=== PATIENT | male | born 1940 | race Caucasian/White ===

== ENCOUNTER 2018-01-19 01:39 | Emergency (ER) | payer OTHER ==
[~2018-01-19] VITALS: Ht 175.3 cm; Wt 80.0 kg
[~2018-01-19 01:39] MED LIST: ASPI81TA82 PO; CHOL50006 PO; LIPI80TA16 PO; LISI-360 PO; LUTE20CA PO; METO50TA PO; TAB-TAB PO
[2018-01-19 01:45] VITALS: BP 152/76; PULSE 110; RESP 18; TEMP 97.8; O2SAT 98
[2018-01-19] MEDS ORDERED: METO25TA3 PO (01:56)
[2018-01-19] MEDS ORDERED: ASPI-516 CHEW (01:56)
[2018-01-19] MEDS ORDERED: ATOR80TA45 PO (01:56)
[2018-01-19] MEDS ORDERED: VITA200013 (01:56)
[2018-01-19] MEDS ORDERED: LISI-515 PO (01:56)
[2018-01-19] MEDS ORDERED: CENTCHW4 CHEW (01:56)
[2018-01-19] MEDS ORDERED: SODIUM CHLORIDE 0.9% FLUSH 10 ML FLUSH IVF PRN (02:00)
[2018-01-19 02:20] LABS: AUTOMATED NEUTROPHIL # 4.9 TH/MM3 (1.8-7.7); BASOPHIL % 0.2 % (0.0-2.0); EOSINOPHIL # 0.3 TH/MM3 (0-0.4); EOSINOPHIL % 3.8 % (0.0-4.0); HEMATOCRIT 43.6 % (39.0-51.0); HEMOGLOBIN 14.6 GM/DL (13.0-17.0); LYMPH % 33.2 % (9.0-44.0); MEAN CELL VOLUME 90.6 FL (80.0-100.0); MEAN CORPUSCULAR HEMOGLOBIN 30.4 PG (27.0-34.0); MEAN CORPUSCULAR HGB CONC 33.5 % (32.0-36.0); MEAN PLATELET VOLUME 8.2 FL (7.0-11.0); MONOCYTE # 0.8 TH/MM3 (0-0.9); NEUT % 53.8 % (16.0-70.0); PLATELET COUNT 181 TH/MM3 (150-450); RED BLOOD COUNT 4.81 MIL/MM3 (4.50-5.90); RED CELL DISTRIBUTION WIDTH 14.4 % (11.6-17.2); WHITE BLOOD COUNT 9.1 TH/MM3 (4.0-11.0)
[2018-01-19 02:27] LABS: INTERNATIONAL NORMALIZED RATIO 1.1 RATIO; PROTHROMBIN TIME - PATIENT 11.3 SEC (9.8-11.6)
--- NOTE | 2018-01-19 02:33 | PD ---
HPI . Palpitations Chief Complaint: Cardiac Complaint Time Seen by Provider: 02:00 Travel History International Travel<30 days: No Contact w/Intl Traveler<30days: No Traveled to known affect area: No History of Present Illness HPI This patient presents with the acute onset of palpitations. It started at 11 PM. He states that it was a hard, pounding sensation in his chest. He denied any associated symptoms. Symptoms were completely relieved by cortisone which was given by EMS. Symptoms lasted approximately 2 hours. This patient does have a strong history of cardiovascular disease. He has a history of previous OH and previous atrial fibrillation. He believes that he is normally in a sinus rhythm. He is not on an anticoagulant which would lead me to believe that his underlying rhythm is sinus. PFSH Past Medical History Arthritis: Yes (generalized ) Asthma: No Autoimmune Disease: No Heart Rhythm Problems: No Cancer: No Cardiac Catheterization: No Cardiovascular Problems: Yes High Cholesterol: Yes Chemotherapy: No Chest Pain: Yes Congestive Heart Failure: No COPD: No Cerebrovascular Accident: No Diabetes: No Diminished Hearing: No Endocrine: No Gastrointestinal Disorders: Yes (GALLBLADDER STONES) GERD: Yes Genitourinary: No Hepatitis: No Hiatal Hernia: No Hypertension: Yes Immune Disorder: No Kidney Stones: No Musculoskeletal: Yes (ARTHRITIS) Neurologic: Yes (NUMBNESS UPPER THIGHS (LATERAL)) Psychiatric: No Reproductive: No Respiratory: No Immunizations Current: No Migraines: No Radiation Therapy: No Renal Failure: No Seizures: No Sickle Cell Disease: No Sleep Apnea: No Thyroid Disease: No Ulcer: No Past Surgical History Abdominal Surgery: No AICD: No Arteriovenous Shunt: No Cardiac Surgery: Yes (11/04/13 TRIPLE BYPASS) Coronary Artery Bypass Graft: Yes (10/2013) Ear Surgery: No Endocrine Surgery: No Eye Surgery: No Genitourinary Surgery: No Insulin Pump: No Joint Replacement: No Oral Surgery: No Pacemaker: No Thoracic Surgery: No Tonsillectomy: Yes Other Surgery: Yes (lt shoulder rotator cuff 8-9 years ago) Family History Family Myocardial Infarction: Yes Social History Alcohol Use: Yes (OCCASSIONAL) Tobacco Use: No Substance Use: No Allergies-Medications (Allergen,Severity, Reaction): Coded Allergies: No Known Allergies (Verified Adverse Reaction, Unknown, 01/19/18) Reported Meds & Prescriptions Reported Meds & Active Scripts Active Reported Vitamin D (Cholecalciferol) 2,000 Unit Cap 2,500 DAILY Centrum (Multiple Vitamins W/ Minerals) 1 Chew 1 Tab CHEW DAILY Metoprolol Tartrate 25 Mg Tab 25 Mg PO BID Aspirin 81 Mg Chew 81 Mg CHEW DAILY Lisinopril 20 Mg Tab 20 Mg PO DAILY Atorvastatin (Atorvastatin Calcium) 80 Mg Tab 80 Mg PO HS Review of Systems Except as stated in HPI: all other systems reviewed are Neg Physical Exam Narrative GENERAL: Pleasant, elderly man who is in no acute distress. SKIN: warm/dry. Normal color and turgor. HEAD: Normocephalic. Atraumatic. EYES: Pupils equal and round. No scleral icterus. No injection or drainage. ENT: No nasal bleeding or discharge. Mucous membranes pink and moist. NECK: Trachea midline. Full range of motion without pain.. CARDIOVASCULAR: Irregular rhythm with a controlled rate. RESPIRATORY: No accessory muscle use. Clear to auscultation. Breath sounds equal bilaterally. MUSCULOSKELETAL: No obvious deformities. NEUROLOGICAL: Awake and alert. No obvious cranial nerve deficits. Motor grossly within normal limits. Normal speech. PSYCHIATRIC: Appropriate mood and affect; insight and judgment normal. Data Data Last Documented VS Vital Signs Date Time Temp Pulse Resp B/P (MAP) Pulse Ox O2 Delivery O2 Flow Rate FiO2 01/19/18 02:49 105 16 142/67 (92) 98 Room Air 01/19/18 01:45 97.8 Orders Orders Basic Metabolic Panel (Bmp) (01/19/18 02:00) Complete Blood Count With Diff (01/19/18 02:00) Magnesium (Mg) (01/19/18 02:00) Prothrombin Time / Inr (Pt) (01/19/18 02:00) Troponin I (01/19/18 02:00) Ecg Monitoring (01/19/18 02:00) Iv Access Insert/Monitor (01/19/18 02:00) Oximetry (01/19/18 02:00) Sodium Chloride 0.9% Flush (Ns Flush) (01/19/18 02:00) Chest, Pa & Lat (01/19/18 02:00) Labs Laboratory Tests Test 01/19/18 02:10 White Blood Count 9.1 TH/MM3 Red Blood Count 4.81 MIL/MM3 Hemoglobin 14.6 GM/DL Hematocrit 43.6 % Mean Corpuscular Volume 90.6 FL Mean Corpuscular Hemoglobin 30.4 PG Mean Corpuscular Hemoglobin Concent 33.5 % Red Cell Distribution Width 14.4 % Platelet Count 181 TH/MM3 Mean Platelet Volume 8.2 FL Neutrophils (%) (Auto) 53.8 % Lymphocytes (%) (Auto) 33.2 % Monocytes (%) (Auto) 9.0 % Eosinophils (%) (Auto) 3.8 % Basophils (%) (Auto) 0.2 % Neutrophils # (Auto) 4.9 TH/MM3 Lymphocytes # (Auto) 3.0 TH/MM3 Monocytes # (Auto) 0.8 TH/MM3 Eosinophils # (Auto) 0.3 TH/MM3 Basophils # (Auto) 0.0 TH/MM3 CBC Comment DIFF FINAL Differential Comment Prothrombin Time 11.3 SEC Prothromb Time International Ratio 1.1 RATIO Blood Urea Nitrogen 14 MG/DL Creatinine 1.18 MG/DL Random Glucose 119 MG/DL Calcium Level 9.4 MG/DL Magnesium Level 2.0 MG/DL Sodium Level 141 MEQ/L Potassium Level 4.1 MEQ/L Chloride Level 107 MEQ/L Carbon Dioxide Level 26.7 MEQ/L Anion Gap 7 MEQ/L Estimat Glomerular Filtration Rate 60 ML/MIN Troponin I LESS THAN 0.02 NG/ML MDM Medical Decision Making Medical Screen Exam Complete: Yes Emergency Medical Condition: Yes Medical Record Reviewed: Yes (Medical history of hypertension, hyperlipidemia, coronary artery disease status post previous OH, atrial fibrillation) Interpretation(s) EKG shows atrial fibrillation with a controlled rate and no acute ischemic changes. Differential Diagnosis Differential diagnosis of palpitations includes but is not limited to anxiety, SVT, aVF with RVR, VT, sinus tachycardia, PVCs Narrative Course This patient presents for the evaluation of palpitations. The palpitations have been successfully treated by EMS with Cardizem. He is in atrial fibrillation. His heart rate has remained stable in the emergency department. CBC & BMP Diagram 01/19/18 02:10 Calcium Level 9.4, Magnesium Level 2.0 Coags are normal. Troponin < 0.02 The patient reports that he feels well and would like to go home. He gives me no contraindications to anticoagulation. I will give him a prescription for Xarelto and Cardizem and have him follow-up with Dr. Alarcon. Diagnosis Primary Impression: Atrial fibrillation with rapid ventricular response Patient Instructions: A-fib (Atrial Fibrillation) (DC), General Instructions Med/Other Pt SpecificInfo: Prescription(s) given Scripts Diltiazem CD 24 HR (Cardizem CD 24 HR) 180 Mg Caper 180 MG PO DAILY, #30 CAP 0 Refills Prov: Dai Sarah MD 01/19/18 Rivaroxaban (Xarelto) 20 Mg Tab 20 MG PO DAILY for Blood Clot Prevention for 30 Days, #30 TAB 0 Refills Prov: Dai Sarah MD 01/19/18 Disposition: 01 DISCHARGE HOME Condition: Stable Dai Sarah MD Jan 19, 2018 02:33
--- NOTE | 2018-01-19 02:45 | RADRPT ---
EXAM DATE/TIME: 01/19/2018 02:28 [facility] COMPARISON: CHEST SINGLE AP, September 19, 2015, 0:16. INDICATIONS : Short of breath. MEDICAL HISTORY : None. SURGICAL HISTORY : Pacemaker. CABG. ENCOUNTER: Initial ACUITY: 1 day PAIN SCORE: 0/10 LOCATION: Bilateral chest FINDINGS: PA and lateral views of the chest demonstrate the lungs to be symmetrically aerated without evidence of mass, infiltrate or effusion. The cardiomediastinal contours are unremarkable. Osseous structure s are intact. Median sternotomy changes are again noted. CONCLUSION: No evidence of acute cardiopulmonary disease. Jd Thompson MD on January 19, 2018 at 2:43 Board Certified Radiologist. This report was verified electronically.
[2018-01-19 02:47] LABS: TROPONIN I LESS THAN 0.02 NG/ML (0.02-0.05)
[2018-01-19 02:49] VITALS: BP 142/67; PULSE 105; RESP 16; O2SAT 98
[2018-01-19 02:49] LABS: BICARBONATE 26.7 MEQ/L (21.0-32.0); BLOOD UREA NITROGEN 14 MG/DL (7-18); CALCIUM 9.4 MG/DL (8.5-10.1); CHLORIDE 107 MEQ/L (98-107); CREATININE 1.18 MG/DL (0.60-1.30); GLOMERULAR FILTRATION RATE 60 ML/MIN (>89); GLUCOSE,RANDOM 119 MG/DL (74-106); SODIUM (NA) 141 MEQ/L (136-145)
[2018-01-19] MEDS ORDERED: XARE20TA PO (03:46)
[2018-01-19] MEDS ORDERED: CARD180C5 PO (03:46)
[2018-01-19] MEDS ORDERED: RIVAROXABAN 20 MG TAB PO ONE (04:00)
[2018-01-19] MEDS ORDERED: DILTIAZEM-CD 180 MG CAP ER PO ONE (04:00)
[2018-01-19 07:00] VITALS: PULSE 135
[2018-01-19] MEDS ORDERED: METOPROLOL TARTRATE 5 MG/5 ML VIAL IV PUSH PRN (07:15)
[2018-01-19 07:18] VITALS: BP 136/72; PULSE 120; RESP 19; O2SAT 98
[2018-01-19 07:52] VITALS: PULSE 92
--- NOTE | 2018-01-19 15:21 | EKG ---
Date Performed: 01/19/2018 Time Performed: 01:47:17 PTAGE: 77 years EKG: ATRIAL FIBRILLATION WITH RAPID VENTRICULAR RESPONSE INCOMPLETE RIGHT BUNDLE BRANCH BLOCK MO DERATE ST DEPRESSION ABNORMAL ECG Since the PREVIOUS TRACING , no significant change noted PREVIOUS TRACIN09/19/2015 06.01 DOCTOR: Mo Burt Interpretating Date/Time 01/19/2018 15:16:58
== END 2018-01-19 08:27 | disposition home or self-care (01) ==
LOC: NEPE 01:39
DX: I48.91 Unspecified atrial fibrillation (principal); E78.00 Pure hypercholesterolemia, unspecified; I10 Essential (primary) hypertension
CPT/HCPCS: 71046; 80048; 83735; 84484; 85025; 85610; 93005; 96374

== ENCOUNTER 2018-02-27 08:43 | Inpatient (IN) | payer OTHER, MEDICARE ==
[2018-02-27] VITALS (12 sets, daily range): BP systolic 112–150; BP diastolic 61–84; PULSE 87–119; RESP 15–24; TEMP 97.7–98.6; O2SAT 98–99
[~2018-02-27] VITALS: Ht 175.3 cm; Wt 76.0 kg
[~2018-02-27 08:43] MED LIST changes: +ASPI-516 CHEW; -ASPI81TA82 PO; +ATOR80TA45 PO; +CARD180C5 PO; +CENTCHW4 CHEW; -CHOL50006 PO; -LIPI80TA16 PO; -LISI-360 PO; +LISI-515 PO; -LUTE20CA PO; +METO25TA3 PO; -METO50TA PO; -TAB-TAB PO; +VITA200013; +XARE20TA PO
[2018-02-27] MEDS ORDERED: PANTOPRAZOLE INJ 80 MG in SODIUM CHLORIDE 0.9% INJ 35 ML IV ONE (09:03)
--- NOTE | 2018-02-27 09:09 | PD ---
HPI Chief Complaint: GI Complaint Time Seen by Provider: 08:56 Travel History International Travel<30 days: No Contact w/Intl Traveler<30days: No Traveled to known affect area: No History of Present Illness HPI 77yo M with PMH of afib on xarelto and diltiazem, CAD s/p CABG, HLD presents to the ED with c/o blood in stool since yesterday. Said he only took half his xarelto yesterday because he thinks that is what is causing the bleeding. Pt has also been feeling sob with just a few steps of walking for 2 days. Denies any fever, chest pain, n/v, abdominal pain, focal weakness or numbness. Pt had colonoscopy in 2014 and it was normal. PFSH Past Medical History Hx Anticoagulant Therapy: Yes Arthritis: Yes (generalized ) Asthma: No Autoimmune Disease: No Heart Rhythm Problems: No Cancer: No Cardiac Catheterization: Yes Cardiovascular Problems: Yes High Cholesterol: Yes Chemotherapy: No Chest Pain: Yes Congestive Heart Failure: No COPD: No Cerebrovascular Accident: No Diabetes: No Diminished Hearing: No Endocrine: No Gastrointestinal Disorders: Yes (GALLBLADDER STONES) GERD: Yes Genitourinary: No Hepatitis: No Hiatal Hernia: No Hypertension: Yes Immune Disorder: No Kidney Stones: No Musculoskeletal: Yes Neurologic: Yes (NUMBNESS UPPER THIGHS (LATERAL)) Psychiatric: No Reproductive: No Respiratory: No Immunizations Current: No Migraines: No Radiation Therapy: No Renal Failure: No Seizures: No Sickle Cell Disease: No Sleep Apnea: No Thyroid Disease: No Ulcer: No Past Surgical History Abdominal Surgery: No AICD: No Arteriovenous Shunt: No Cardiac Surgery: Yes (11/04/13 TRIPLE BYPASS) Coronary Artery Bypass Graft: Yes (11/04/2013 TRIPPLE BYPASS ) Ear Surgery: No Endocrine Surgery: No Eye Surgery: No Genitourinary Surgery: No Insulin Pump: No Joint Replacement: No Oral Surgery: No Pacemaker: No Thoracic Surgery: No Tonsillectomy: Yes Other Surgery: Yes (lt shoulder rotator cuff 8-9 years ago) Family History Family Myocardial Infarction: Yes Social History Alcohol Use: Yes (OCCASSIONAL) Tobacco Use: No Substance Use: No Allergies-Medications (Allergen,Severity, Reaction): Coded Allergies: No Known Allergies (Verified Adverse Reaction, Unknown, 02/27/18) Reported Meds & Prescriptions Reported Meds & Active Scripts Active Cardizem CD 24 HR (Diltiazem CD 24 HR) 180 Mg Caper 180 Mg PO DAILY Xarelto (Rivaroxaban) 20 Mg Tab 20 Mg PO DAILY 30 Days Reported Vitamin D (Cholecalciferol) 2,000 Unit Cap 2,500 DAILY Centrum (Multiple Vitamins W/ Minerals) 1 Chew 1 Tab CHEW DAILY Atorvastatin (Atorvastatin Calcium) 80 Mg Tab 80 Mg PO HS Review of Systems Except as stated in HPI: all other systems reviewed are Neg Physical Exam Narrative GENERAL: 77yo M in mild distress. SKIN: Focused skin assessment warm/dry. HEAD: Atraumatic. Normocephalic. EYES: Pupils equal and round. No scleral icterus. No injection or drainage. ENT: No nasal bleeding or discharge. Mucous membranes pink and moist. NECK: Trachea midline. No JVD. CARDIOVASCULAR: Irregular rate and rhythm. No murmur appreciated. RESPIRATORY: No accessory muscle use. Clear to auscultation. Breath sounds equal bilaterally. GASTROINTESTINAL: Abdomen soft, non-tender, nondistended. No rebound tenderness or guarding. RECTAL: +Maroon color on rectal exam. +Hemaprompt. MUSCULOSKELETAL: No obvious deformities. No clubbing. No cyanosis. +Bilateral lower extremity edema. NEUROLOGICAL: Awake and alert. No obvious cranial nerve deficits. Motor grossly within normal limits. Normal speech. PSYCHIATRIC: Appropriate mood and affect; insight and judgment normal. Data Data Last Documented VS Vital Signs Date Time Temp Pulse Resp B/P (MAP) Pulse Ox O2 Delivery O2 Flow Rate FiO2 02/27/18 09:39 89 19 118/61 (80) 98 Room Air 02/27/18 08:45 98.4 Orders Orders Basic Metabolic Panel (Bmp) (02/27/18 09:03) Complete Blood Count With Diff (02/27/18 09:03) Prothrombin Time / Inr (Pt) (02/27/18 09:03) Act Partial Throm Time (Ptt) (02/27/18 09:03) Type And Screen (02/27/18 09:03) Sodium Chloride 0.9... W/Pantoprazole In (02/27/18 09:03) Sodium Chloride 0.9... W/Pantoprazole In (02/27/18 09:03) Troponin I (02/27/18 09:03) Electrocardiogram (02/27/18 ) Chest, Single Ap (02/27/18 ) B-Type Natriuretic Peptide (02/27/18 09:03) ^ Lab Follow Up (02/27/18 09:19) Prothrombin Complex Conc Inj (Kcentra In (02/27/18 09:30) Red Blood Cells (Rbc) (02/27/18 10:18) Blood Product Administration (02/27/18 10:18) Sodium Chlor 0.9% 250 Ml Inj (Ns 250 Ml (02/27/18 10:30) Consult Gastroenterology (02/27/18 ) Labs Laboratory Tests Test 02/27/18 09:10 White Blood Count 6.7 TH/MM3 Red Blood Count 2.92 MIL/MM3 Hemoglobin 8.6 GM/DL Hematocrit 26.5 % Mean Corpuscular Volume 90.5 FL Mean Corpuscular Hemoglobin 29.4 PG Mean Corpuscular Hemoglobin Concent 32.4 % Red Cell Distribution Width 14.0 % Platelet Count 266 TH/MM3 Mean Platelet Volume 7.8 FL Neutrophils (%) (Auto) 71.2 % Lymphocytes (%) (Auto) 18.4 % Monocytes (%) (Auto) 9.4 % Eosinophils (%) (Auto) 0.6 % Basophils (%) (Auto) 0.4 % Neutrophils # (Auto) 4.8 TH/MM3 Lymphocytes # (Auto) 1.2 TH/MM3 Monocytes # (Auto) 0.6 TH/MM3 Eosinophils # (Auto) 0.0 TH/MM3 Basophils # (Auto) 0.0 TH/MM3 CBC Comment DIFF FINAL Differential Comment Prothrombin Time 13.5 SEC Prothromb Time International Ratio 1.3 RATIO Activated Partial Thromboplast Time 27.1 SEC Blood Urea Nitrogen 13 MG/DL Creatinine 1.21 MG/DL Random Glucose 146 MG/DL Calcium Level 8.6 MG/DL Sodium Level 141 MEQ/L Potassium Level 3.6 MEQ/L Chloride Level 108 MEQ/L Carbon Dioxide Level 23.6 MEQ/L Anion Gap 9 MEQ/L Estimat Glomerular Filtration Rate 58 ML/MIN Troponin I LESS THAN 0.02 NG/ML B-Type Natriuretic Peptide 228 PG/ML MDM Medical Decision Making Medical Screen Exam Complete: Yes Emergency Medical Condition: Yes Interpretation(s) EKG: Afib at 114bpm. LAD. Mild ST depression I, aVL, V4-V6. ST depressions similar to EKG from 01/2018. Differential Diagnosis Lower GI bleed vs. symptomatic anemia vs. Afib RVR Narrative Course 77yo M with blood in stool and exertional sob for 2 days. He is on xarelto for afib and is having active GI bleed so will give K centra to reverse anticoagulation. Pt also given protonix for GI bleed. Pt's motel front desk clerk is Dr. Alves. He took his diltiazem this morning, HR is fluctuating between 100s to low 110s. Labs reviewed, no leukocytosis. H/H low at 8.6/26.5 which is decreased from 14.6/43.6 on 01/19/18. BMP unremarkable. Troponin negative. Pt reevaluated at bedside. Vital signs are stable with BP at 112/67 and HR in the 90s. CXR negative. Pt has symptomatic anemia secondary to GI bleed and has CAD so will transfuse 1 unit of PRBC. Discussed with Dr. Chavira and accepted to his service. Critical Care Narrative Aggregate critical care time was 40 minutes. Time to perform other separately billable procedures was not included in the critical care time. My time did not include minutes spent treating any other patients simultaneously or on activities that did not directly contribute to the patient's treatment. The services I provided to this patient were to treat and/or prevent clinically significant deterioration that could result in: cardiovascular collapse or . I provided critical care services requiring my management, as noted below: Chart data review, documentation time, medication orders and management, vital sign assessments/reviewing monitor data, ordering and reviewing lab tests, ordering and interpreting/reviewing x-rays and diagnostic studies, care of the patient and discussion of the patient with the admitting physicians. Diagnosis Primary Impression: GI bleed Qualified Codes: K92.2 - Gastrointestinal hemorrhage, unspecified Additional Impression: Symptomatic anemia Admitting Information Admitting Physician Requests: Kaylen Crain DO February 27, 2018 09:09
--- NOTE | 2018-02-27 09:27 | RADRPT ---
EXAM DATE: 02/27/2018 9:23 AM EDT AGE/SEX: 77 years / Male INDICATIONS: Shortness of breath for two days. CLINICAL DATA: This is the patient's initial encounter. Patient reports that signs and symptoms have been present for 2 days and indicates a pain score of 0/10. MEDICAL/SURGICAL HISTORY: None. CABG. COMPARISON: [facility] [place], CHEST SINGLE AP, 09/19/2015. . FINDINGS: A single AP view of the chest demonstrates the lungs to be symmetrically aerated without evidence of mass, infiltrate or effusion. The cardiomediastinal contours are unremarkable and stable. There is e vidence of previous cardiothoracic surgery.. Osseous structures are intact. CONCLUSION: No acute intrathoracic disease. Stable examination. Electronically signed by: Kali Delgado MD 02/27/2018 9:26 AM EDT
[2018-02-27] MEDS ORDERED: PROTHROMBIN COMPLEX CONC INJ 4,000 UNITS in SYRINGE/BAG 1 EA IV ONE (09:30)
[2018-02-27 09:38] LABS: AUTOMATED NEUTROPHIL # 4.8 TH/MM3 (1.8-7.7); BASOPHIL % 0.4 % (0.0-2.0); EOSINOPHIL % 0.6 % (0.0-4.0); HEMATOCRIT 26.5 % (39.0-51.0); HEMOGLOBIN 8.6 GM/DL (13.0-17.0); LYMPH % 18.4 % (9.0-44.0); LYMPHOCYTE # 1.2 TH/MM3 (1.0-4.8); MEAN CELL VOLUME 90.5 FL (80.0-100.0); MEAN CORPUSCULAR HEMOGLOBIN 29.4 PG (27.0-34.0); MEAN CORPUSCULAR HGB CONC 32.4 % (32.0-36.0); MEAN PLATELET VOLUME 7.8 FL (7.0-11.0); MONO % 9.4 % (0.0-8.0); MONOCYTE # 0.6 TH/MM3 (0-0.9); NEUT % 71.2 % (16.0-70.0); PLATELET COUNT 266 TH/MM3 (150-450); RED BLOOD COUNT 2.92 MIL/MM3 (4.50-5.90); WHITE BLOOD COUNT 6.7 TH/MM3 (4.0-11.0)
[2018-02-27] MEDS: PANTOPRAZOLE INJ 80 MG in SODIUM CHLORIDE 0.9% INJ 100 ML IV SCH ×2 (09:46→17:50)
[2018-02-27 09:56] LABS: INTERNATIONAL NORMALIZED RATIO 1.3 RATIO; PROTHROMBIN TIME - PATIENT 13.5 SEC (9.8-11.6)
[2018-02-27 10:09] LABS: BICARBONATE 23.6 MEQ/L (21.0-32.0); BLOOD UREA NITROGEN 13 MG/DL (7-18); CALCIUM 8.6 MG/DL (8.5-10.1); CHLORIDE 108 MEQ/L (98-107); CREATININE 1.21 MG/DL (0.60-1.30); GLOMERULAR FILTRATION RATE 58 ML/MIN (>89); GLUCOSE,RANDOM 146 MG/DL (74-106); SODIUM (NA) 141 MEQ/L (136-145)
[2018-02-27 10:14] LABS: TROPONIN I LESS THAN 0.02 NG/ML (0.02-0.05)
[2018-02-27] MEDS ORDERED: SODIUM CHLOR 0.9% 250 ML INJ 250 ML IV ONE (10:30)
[2018-02-27] MEDS ORDERED: ONDANSETRON ODT 4 MG TAB PO PRN (11:15)
--- NOTE | 2018-02-27 11:20 | HHI.HP ---
[facility] Primary [facility] Physician Unknown Admission Diagnosis GI bleed on xarelto Diagnoses: (1) Acute blood loss anemia Diagnosis: Principal (2) GI bleed Diagnosis: Principal Chief Complaint: rectal bleed Travel History International Travel<30 Days: No Contact w/Intl Traveler <30 Da: No Traveled to Known Affected Are: No History of Present Illness patient is a 77 y/o male with history of CAD, hypertension, recently diagnosed with a-fib, on Xarelto presented to ER with rectal bleed. he was seen in ER and was diagnosed with a-fib about a month ago and was placed on cardizem and xarelto. he says that since then he's been having fatigue with some exertional dyspnea. he says that initially he thought it was because of the new medications that he was started on. he says that he had a large BM yesterday , most of which was blood. again he had another BM this morning and he noticed some blood when he wiped himself. then he decided to come to ER. he denies any abdominal pain, nausea, vomiting, chest pain or dizziness. he had his last colonoscopy in 2014 which was reportedly negative. Review of Systems Constitutional: COMPLAINS OF: Fatigue, DENIES: Fever, Weight loss, Chills, Night Sweats Eyes: DENIES: Blurred vision, Diplopia, Vision loss, Double Vision Ears, nose, mouth, throat: DENIES: Tinnitus, Vertigo, Throat pain, Epistaxis Respiratory: DENIES: Apneas, Cough, Snoring, Wheezing, Hemoptysis, Sputum production, Shortness of breath Cardiovascular: COMPLAINS OF: Dyspnea on Exertion, DENIES: Chest pain, Palpitations, Syncope, PND, Lower Extremity Edema, Orthopnea, Claudication Gastrointestinal: COMPLAINS OF: Bloody stools, DENIES: Abdominal pain, Black stools, Constipation, Diarrhea, Nausea, Vomiting, Difficulty Swallowing, Anorexia Genitourinary: DENIES: Urinary frequency, Urgency, Hematuria, Dysuria Musculoskeletal: DENIES: Joint pain, Muscle aches, Stiffness, Joint Swelling Integumentary: DENIES: Rash Neurologic: DENIES: Abnormal gait, Headache, Localized weakness, Paresthesias, Seizures, Speech Problems, Tremor, Poor Balance Psychiatric: DENIES: Anxiety, Confusion, Mood changes, Depression, Hallucinations, Agitation, Suicidal Ideation, Homicidal Ideation, Delusions Past Family Social History Past Medical History CAD/ hypertension/ a-fib. Past Surgical History CABG/ cholecystectomy. Reported Medications Cardizem CD 24 HR (Diltiazem CD 24 HR) 180 Mg Caper 180 Mg PO DAILY Xarelto (Rivaroxaban) 20 Mg Tab 20 Mg PO DAILY 30 Days Reported Vitamin D (Cholecalciferol) 2,000 Unit Cap 2,500 DAILY Centrum (Multiple Vitamins W/ Minerals) 1 Chew 1 Tab CHEW DAILY Atorvastatin (Atorvastatin Calcium) 80 Mg Tab 80 Mg PO HS Allergies: Coded Allergies: No Known Allergies (Verified Adverse Reaction, Unknown, 02/27/18) Active Ordered Medications Inpatient Medications Pantoprazole Sodium 80 mg/ Sodium Chloride 100 ml @ 10 mls/hr Q10H IV Last administered on 02/27/18at 09:46; Start 02/27/18 at 09:03 Prothrombin Complex Concent (Human) 4000 units/Syringe / Bag 0 ml @ 500 mls/hr ONCE ONCE IV Last administered on 02/27/18at 10:20; Start 02/27/18 at 09:30; Stop 02/27/18 at 09:37; Status DC Sodium Chloride 1,000 ml @ 100 mls/hr Q10H IV ; Start 02/27/18 at 10:30 Family History hypertension in father. Social History quit smoking- drinks occasionally. Physical Exam Vital Signs Vital Signs Date Time Temp Pulse Resp B/P (MAP) Pulse Ox O2 Delivery O2 Flow Rate FiO2 02/27/18 09:39 89 19 118/61 (80) 98 Room Air 02/27/18 09:13 111 24 132/72 (92) 98 Room Air 02/27/18 08:45 98.4 119 22 150/84 (106) 99 Physical Exam GENERAL: This is a well-nourished, well-developed patient, in no apparent distress. SKIN: No rashes, ecchymoses or lesions. Cool and dry. HEAD: Atraumatic. Normocephalic. No temporal or scalp tenderness. EYES: Pupils equal round and reactive. Extraocular motions intact. No scleral icterus. No injection or drainage. ENT: Nose without bleeding, purulent drainage or septal hematoma. Throat without erythema, tonsillar hypertrophy or exudate. Uvula midline. Airway patent. NECK: Trachea midline. No JVD or lymphadenopathy. Supple, nontender, no meningeal signs. CARDIOVASCULAR: Regular rate and rhythm without murmurs, gallops, or rubs. RESPIRATORY: Clear to auscultation. Breath sounds equal bilaterally. No wheezes , rales, or rhonchi. GASTROINTESTINAL: Abdomen soft, non-tender, nondistended. No hepato-splenomegaly , or palpable masses. No guarding. MUSCULOSKELETAL: Extremities without clubbing, cyanosis, or edema. No joint tenderness, effusion, or edema noted. No calf tenderness. Negative Homans sign bilaterally. NEUROLOGICAL: Awake and alert. Cranial nerves II through XII intact. Motor and sensory grossly within normal limits. Five out of 5 muscle strength in all muscle groups. Normal speech. Laboratory Laboratory Tests Test 02/27/18 09:10 White Blood Count 6.7 Red Blood Count 2.92 Hemoglobin 8.6 Hematocrit 26.5 Mean Corpuscular Volume 90.5 Mean Corpuscular Hemoglobin 29.4 Mean Corpuscular Hemoglobin Concent 32.4 Red Cell Distribution Width 14.0 Platelet Count 266 Mean Platelet Volume 7.8 Neutrophils (%) (Auto) 71.2 Lymphocytes (%) (Auto) 18.4 Monocytes (%) (Auto) 9.4 Eosinophils (%) (Auto) 0.6 Basophils (%) (Auto) 0.4 Neutrophils # (Auto) 4.8 Lymphocytes # (Auto) 1.2 Monocytes # (Auto) 0.6 Eosinophils # (Auto) 0.0 Basophils # (Auto) 0.0 CBC Comment DIFF FINAL Differential Comment Prothrombin Time 13.5 Prothromb Time International Ratio 1.3 Activated Partial Thromboplast Time 27.1 Blood Urea Nitrogen 13 Creatinine 1.21 Random Glucose 146 Calcium Level 8.6 Sodium Level 141 Potassium Level 3.6 Chloride Level 108 Carbon Dioxide Level 23.6 Anion Gap 9 Estimat Glomerular Filtration Rate 58 Troponin I LESS THAN 0.02 B-Type Natriuretic Peptide 228 Result Diagram: 02/27/18 0910 02/27/18 0910 Imaging Last Impressions Chest X-Ray 02/27/18 0000 Signed Impressions: CONCLUSION: No acute intrathoracic disease. Stable examination. EKG; a-fib with RVR Caprini VTE Risk Assessment Caprini VTE Risk Assessment: Mod/High Risk (score >= 2) Caprini Risk Assessment Model Point Value = 1 Point Value = 2 Point Value = 3 Point Value = 5 Age 41-60 Minor surgery BMI > 25 kg/m2 Swollen legs Varicose veins or History of unexplained or recurrent spontaneous Oral contraceptives or hormone replacement Sepsis (< 1 month) Serious lung disease, including pneumonia (< 1 month) Abnormal pulmonary function Acute myocardial infarction Congestive heart failure (< 1 month) History of inflammatory bowel disease Medical patient at bed rest Age 61-74 Arthroscopic surgery Major open surgery (> 45 min) Laparoscopic surgery (> 45 min) Malignancy Confined to bed (> 72 hours) Immobilizing plaster cast Central venous access Age >= 75 History of VTE Family history of VTE Factor V Leiden Prothrombin [id number] Lupus anticoagulant Anticardiolipin antibodies Elevated serum homocysteine Heparin-induced thrombocytopenia Other congenital or acquired thrombophilia Stroke (< 1 month) Elective arthroplasty Hip, pelvis, or leg fracture Acute spinal cord injury (< 1 month) Prophylaxis Regimen Total Risk Factor Score Risk Level Prophylaxis Regimen 0-1 Low Early ambulation 2 Moderate Order ONE of the following: *Sequential Compression Device (SCD) *Heparin 5000 units SQ BID 3-4 Higher Order ONE of the following medications: *Heparin 5000 units SQ TID *Enoxaparin/Lovenox 40 mg SQ daily (WT < 150 kg, CrCl > 30 mL/min) *Enoxaparin/Lovenox 30 mg SQ daily (WT < 150 kg, CrCl > 10-29 mL/min) *Enoxaparin/Lovenox 30 mg SQ BID (WT < 150 kg, CrCl > 30 mL/min) AND/OR *Sequential Compression Device (SCD) 5 or more Highest Order ONE of the following medications: *Heparin 5000 units SQ TID (Preferred with Epidurals) *Enoxaparin/Lovenox 40 mg SQ daily (WT < 150 kg, CrCl > 30 mL/min) *Enoxaparin/Lovenox 30 mg SQ daily (WT < 150 kg, CrCl > 10-29 mL/min) *Enoxaparin/Lovenox 30 mg SQ BID (WT < 150 kg, CrCl > 30 mL/min) AND *Sequential Compression Device (SCD) Assessment and Plan Assessment and Plan A/P - acute blood loss anemia due to rectal bleed- on Xarelto will transfuse with PRBC and monitor H/H closely- started on PPI- GI consulted. -a-fib with RVR;( was recently diagnosed with a-fib and started on Xarelto and Cardizem); hold Xarelto- will resume Cardizem if HR doesn't improve after blood transfusion and BP remains stable. -CAD- s/p CABG/ hypertension; hold BP meds for now. will continue to monitor. of note he's being followed up by and reportedly had a recent w/ u including echo and stress test. DVT prophylaxis with SCD's- no chemical prophylaxis due to GI bleed. Discussed Condition With ER physician and the patient. Physician Certification 2 Midnight Certification Type: Admission for Inpatient Services Order for Inpatient Services The services are ordered in accordance with Medicare regulations or non- Medicare payer requirements, as applicable. In the case of services not specified as inpatient-only, they are appropriately provided as inpatient services in accordance with the 2-midnight benchmark. Estimated LOS (days): 2 days is the estimated time the patient will need to remain in the hospital, assuming treatment plan goals are met and no additional complications. Post-Hospital Plan: Home Problem Qualifiers (1) GI bleed: Qualified Codes: K92.2 - Gastrointestinal hemorrhage, unspecified Yuan Whitt MD February 27, 2018 11:20
[2018-02-27] MEDS: SODIUM CHLOR 0.9% 1000 ML INJ 1,000 ML IV SCH ×2 (15:30→17:51)
[2018-02-27 16:17] LABS: HEMOGLOBIN 8.9 GM/DL (13.0-17.0)
--- NOTE | 2018-02-27 16:59 | MB ---
cc: Donald Jerez MD, Sunil P MD Agnone, Louis M MD DATE: 02/27/2018 REASON FOR CONSULTATION: I was asked to the patient at the request of Dr. Whitt for evaluation of GI bleed. HISTORY OF PRESENT ILLNESS: The patient is a pleasant 77-year-old white male with history of colon polyps, who states his last colonoscopy was in 2014 and it was "normal". He is not quite sure if any diverticula were noted, but he remembers no polyps were seen. He unfortunately was recently diagnosed with atrial fibrillation and he also has a history of known coronary artery disease. He was recently placed on he believes Cardizem as well as Xarelto. For the last month, he has been feeling fatigued, has exertional dyspnea (especially when he rides his bike). He denies any black or red stools at that time. However, yesterday he had a large bowel movement and it basically contained a lot of red blood. He describes it as quite a large amount. He did take a Xarelto last night, but only half the normal dosage. This morning, he also had a red bowel movement, but it was not as much and was mainly on the toilet paper this morning. Because of the bleeding, he came to emergency room and he was subsequently admitted and we were asked to see him. The patient denies any dysphagia, odynophagia, early satiety, nausea, vomiting or heartburn issues. No melena, abdominal pain, diarrhea, constipation. He has not been taking any aspirin or NSAIDs. He has never had an ulcer or GI bleed like this in the past. Past history consists of coronary artery bypass grafting. A few weeks later, he had a cholecystectomy for a bad gallbladder. He is not quite sure whether gallstones were noted or not. He has had several colonoscopies, he states. PAST MEDICAL HISTORY: Dyslipidemia, coronary artery disease/angina. His coronary artery disease has been stable recently. He also has hypertension and atrial fibrillation. He has had colon polyps also. He also had a rotator cuff repair. He has also had recent dental implant surgery. OUTPATIENT MEDICATIONS: 1. Atorvastatin. 2. Centrum. 3. Vitamin D. 4. Xarelto 5. Cardizem. INPATIENT MEDICATIONS: 1. Pantoprazole. 2. Zofran FAMILY HISTORY: Significant for coronary artery disease, but no family history of colon cancer or colon polyps. SOCIAL HISTORY: Does not smoke. Drinks alcohol occasionally. ALLERGIES: NO KNOWN DRUG ALLERGIES. REVIEW OF SYSTEMS: No weight loss, fever or chills CARDIOPULMONARY: No chest pain, palpitation, wheezing, shortness of breath right now. For the rest of systems, please see above. Otherwise, unremarkable 12-point review of systems. PHYSICAL EXAMINATION: VITAL SIGNS: Blood pressure 112/61, pulse of 87, respiratory rate of 18, temperature is 98.6. Earlier, his heart rate was as high as 119 and blood pressure 150/84. GENERAL: He is an elderly white male resting comfortably at this time appears to be in no acute GI distress. He actually feels better now. HEENT: Pupils are equal and reactive to light. No obvious scleral icterus. Oropharynx had dental caries. No tongue deviation or christopher lesions. He is missing several teeth. Hearing was intact. NECK: Supple without lymphadenopathy. LUNGS: Clear to percussion. CARDIOVASCULAR: Somewhat irregular rhythm. No gross murmurs are heard. ABDOMEN: Soft, nondistended, nontender. No organomegaly. No ascites or hernias noted. Bowel sounds positive in all 4 quadrants. EXTREMITIES: No cyanosis, clubbing or edema. NEUROLOGIC: His cranial nerves 2-12 are grossly intact. No gross sensory or motor deficits noted. SKIN: Warm and dry. RECTAL: A rectal exam was not repeated but was done by the ER doctor, which revealed maroon stool which was Hemoccult positive. LABORATORY DATA: Prothrombin time of 13.5, INR 1.3, PTT at 27.1. His BUN was 13, creatinine 1.21. Both are normal. Troponins are less than 0.02. Potassium 3.6, sodium 141, chloride 108, CO2 of 23.6. His hemoglobin was 8.6, hematocrit 26.5, MCV of 90.5, white blood count of 6700. Platelet count of 266,000. IMAGING STUDIES: A chest x-ray done today revealed no acute intrathoracic disease. IMPRESSION: 1. Hematochezia - it is painless. This may be diverticulosis bleeding, but he does not recall being told he had diverticula before. This may be hemorrhoids. AVMs are a possibility. We talked about upper gastrointestinal bleed, but he denies any melena but occasionally upper gastrointestinal lesion can bleed this rapidly and have red stool. We talked about arteriovenous malformations upper GI tract, ulcers, etc. 2. Anemia, more like acute blood loss anemia. 3. History of colon polyps in the past. 4. Atrial fibrillation. He is on Xarelto. RECOMMENDATIONS: 1. Continue holding Xarelto. 2. Continue proton pump inhibitor. 3. May need to consider idarucizumab (this is a reversal agent for Xarelto), however, I would only use if there is extreme GI bleeding and it seems to have slowed down at this time. 4. Also if there is rapid bleeding, need to consider a bleeding scan or a CT angiography. 5. Ultimately, the patient needs an upper endoscopy and colonoscopy to find the source of the bleeding. However, he still has Xarelto on board and it takes a few days to get out of his system. I will reassess him tomorrow and maybe we could do it on Thursday or Thursday of next week. 6. In regards to the procedures, we did talk about indications, risks, complications, benefits, alternatives and limitations in regards to upper endoscopy and colonoscopy and risks of bleeding, perforation, infection, arrhythmias and a small possibility of . He understands the inherent miss rate for polyps and malignancies and other lesions and that having a normal colonoscopy does not exclude cancer in the future, since not all cancers start from polyps - some from flat lesions which could be missed on index case. He understands the main reason not to do the procedures now is that he still has the Xarelto effect on board and Xarelto can make the bleeding worse especially if we cauterize or biopsy lesions. 7. Transfuse as needed. 8. Further recommendation depending on how he does. 9. I did discuss this with the patient's primary care physician, Dr. Whitt. MD RAUL Patterson/ , 02:11 PM , 04:58 PM
[2018-02-27 22:04] LABS: HEMATOCRIT 26.1 % (39.0-51.0); HEMOGLOBIN 8.7 GM/DL (13.0-17.0)
[2018-02-28 00:09] VITALS: BP 108/67; PULSE 93; RESP 18; TEMP 97.9; O2SAT 96
[2018-02-28] MEDS: SODIUM CHLOR 0.9% 1000 ML INJ 1,000 ML IV SCH ×3 (03:43→20:07)
[2018-02-28] MEDS: PANTOPRAZOLE INJ 80 MG in SODIUM CHLORIDE 0.9% INJ 100 ML IV SCH ×2 (04:01→17:16)
[2018-02-28 08:00] VITALS: BP 119/80; PULSE 106; RESP 16; TEMP 97.7; O2SAT 96
[2018-02-28 12:00] VITALS: BP 110/70; PULSE 104; RESP 17; TEMP 97; O2SAT 97
[2018-02-28] MEDS: DILTIAZEM-CD 180 MG CAP ER PO SCH (12:45)
--- NOTE | 2018-02-28 13:15 | HHI.PR ---
Subjective Remarks Nursing reports patient having formed bowel movements that had some bright red blood in it. Patient says he is having to frequently go to the restroom for a combination of gas and stool. Objective Vital Signs Date Time Temp Pulse Resp B/P (MAP) Pulse Ox O2 Delivery O2 Flow Rate FiO2 02/28/18 12:00 97.0 104 17 110/70 (83) 97 02/28/18 08:00 97.7 106 16 119/80 (93) 96 02/28/18 00:09 97.9 93 18 108/67 (81) 96 02/27/18 20:00 97.8 112 18 148/84 (105) 98 02/27/18 16:00 97.7 102 16 120/73 (89) 98 02/27/18 14:25 92 15 122/68 (86) 98 02/27/18 14:00 100 16 119/69 (86) 99 Room Air I/O 02/27/18 02/27/18 02/27/18 02/28/18 02/28/18 02/28/18 07:00 15:00 23:00 07:00 15:00 23:00 Intake Total 10 ml 410 ml 1100 ml Output Total 1000 ml Balance 10 ml 410 ml 100 ml Intake Oral 0 ml IV Total 1100 ml Packed Cells 400 ml Blood Product IV Normal Saline Flush 10 ml 10 ml Output Urine Total 1000 ml # Voids 5 # Bowel Movements 0 4 Result Diagram: 02/28/18 0617 02/27/18 0910 Objective Remarks Abdomen soft, nontender, nondistended, bowel sounds positive Sitting up at the side of the bed, awake and alert, no acute distress A/P Assessment and Plan rectal bleeding Posttransfusion H&H is stable, Continue Protonix Discussed with GI, anticipate EGD and colonoscopy in a.m. -a-fib with RVR; Resume home Cardizem, rate improving, will hold off on Xarelto given bleeding risk -CAD- s/p CABG/ hypertension; Resume home Lipitor and Cardizem DVT prophylaxis with SCD's- no chemical prophylaxis due to GI bleed. Mahendra Odom MD February 28, 2018 13:15
--- NOTE | 2018-02-28 13:18 | HHI.GIFU ---
GI Follow-up Note Consult Follow-up Subjective: Patient laying in bed comfortably--bleeding has slowed. No nausea , vomiting, abdominal pain. I did review old records in 2014 he had a colonoscopy which showed an adenomatous colon polyp and there was left-sided colonic diverticulosis Objective: PHYSICAL EXAMINATION: 110/70-17-104 No fever HEENT: no jaundice. Throat is clear. NECK: no lymphadenopathy. CHEST: Chest is clear to auscultation and percussion. CARDIAC: no murmur gallop or rubs. ABDOMEN: Soft, nondistended, nontender; no hepatosplenomegaly; bowel sounds are present in all four quadrants. EXTREMITIES: No edema. SKIN: no rash; no jaundice. ROBOTICS TECHNICIAN: alert and oriented times three. Available Data (labs, X- Rays, Procedues) : Hemoglobin 8.0--stable ASSESSMENT/PLAN: 1. Hematochezia - it is painless. This may be diverticulosis bleeding--diverticula were seen on his previous colon. This may be hemorrhoids. AVMs are a possibility. 2. Anemia, more like acute blood loss anemia.--Hemoglobin is stable 3. History of adenomatous colon polyps in the past. 4. Atrial fibrillation. Anticoagulation is on hold. RECOMMENDATIONS: 1. Continue holding Xarelto. 2. Continue proton pump inhibitor. 3. May need to consider idarucizumab (this is a reversal agent for Xarelto), however, I would only use if there is extreme GI bleeding and it seems to have slowed down at this time. 4. Also if there is rapid bleeding, need to consider a bleeding scan or a CT angiography. 5. We will proceed with upper endoscopy and colonoscopy-hopefully tomorrow. I reviewed risk and indication -see yesterday's note 6. Discussed with primary service It was a pleasure seeing Andrew Tang. Thank you for this consult. Entered by: Donald Mclean MD February 28, 2018 13:18
--- NOTE | 2018-02-28 13:20 | EKG ---
Date Performed: 02/27/2018 Time Performed: 09:05:47 PTAGE: 77 years EKG: ATRIAL FIBRILLATION WITH RAPID VENTRICULAR RESPONSE RIGHT VENTRICULAR CONDUCTION DELAY ABNO RMAL RHYTHM ECG Since PREVIOUS TRACING , no significant change noted PREVIOUS TRACIN01/19/2018 01.47 DOCTOR: Mitch James Interpretating Date/Time 02/28/2018 13:17:55
[2018-02-28] MEDS ORDERED: PEG (High)/E-LYTE SOLN 4000 ML BTL PO ONE (13:30)
[2018-02-28 16:00] VITALS: BP 127/82; PULSE 94; RESP 19; TEMP 97.7; O2SAT 97
[2018-02-28 20:00] VITALS: BP 124/76; PULSE 114; RESP 21; TEMP 97.7; O2SAT 99
[2018-02-28] MEDS: ATORVASTATIN 80 MG TAB PO SCH (20:05)
[2018-03-01] VITALS: BP 110/60; PULSE 84; RESP 21; TEMP 97.9; O2SAT 95
[2018-03-01] MEDS ORDERED: METOPROLOL TARTRATE 25 MG TAB PO PRN (00:45)
[2018-03-01] MEDS ORDERED: CHLORHEXIDINE GLUCONATE 2 % 1 PACK (2 CLOTHS) TOPICAL PRN (00:45)
[2018-03-01] MEDS ORDERED: LACTATED RINGER'S 1000 ML IV PRN (00:45)
[2018-03-01] MEDS ORDERED: SODIUM CHLORID 0.9% 500 ML IV PRN (00:45)
[2018-03-01] MEDS ORDERED: POVIDONE IODINE 5% (ANTISEPSIS KIT) 4 APPLICATIONS EACH NARE PRN (00:45)
[2018-03-01] MEDS: PANTOPRAZOLE INJ 80 MG in SODIUM CHLORIDE 0.9% INJ 100 ML IV SCH ×3 (00:46→20:57)
[2018-03-01] MEDS: DILTIAZEM-CD 180 MG CAP ER PO SCH (07:45)
[2018-03-01 08:00] VITALS: BP 116/68; PULSE 87; RESP 17; TEMP 97.6; O2SAT 96
[2018-03-01] MEDS: SODIUM CHLOR 0.9% 1000 ML INJ 1,000 ML IV SCH ×2 (11:18→21:01)
[2018-03-01 11:42] VITALS: PULSE 94
[2018-03-01] MEDS ORDERED: SUCCINYLCHOLINE CHLORIDE 100 MG/5 ML SYRINGE IV PUSH ONE (12:00)
[2018-03-01] MEDS ORDERED: PHENYLEPH/NS 1000 MCG/10 ML SYR IV ONE (12:00)
[2018-03-01] MEDS ORDERED: LIDOCAINE HCL 1% PF 5 ML SYRINGE OTHER ONE (12:00)
[2018-03-01] MEDS ORDERED: PROPOFOL 200 MG/20 ML AMP IV ONE (12:00)
--- NOTE | 2018-03-01 13:00 | GIPROC ---
[facility] [address] [facility]. [facility], [address] EGD PROCEDURE REPORT EXAM DATE: 03/01/2018 PATIENT NAME: Andrew Tang MR #: [id number] BIRTHDATE: 1940 ATTENDING: Donald Jerez MD ORDER #: [id number] MARKET RESEARCH SPECIALIST: Marilee Rosales STATUS: inpatient INDICATIONS: The patient is a 77 yr old male here for an EGD due to hematochezia PROCEDURE PERFORMED: EGD, diagnostic MEDICATIONS: None and Per Anesthesia. TOPICAL ANESTHETIC: none CONSENT: The patient understands the risks and benefits of the procedure and understands that these risks include, but are not limited to: sedation, allergic reaction, infection, perforation and/or bleeding. Alternative means of evaluation and treatment include, among others: physical exam, x-rays, and/or surgical intervention. The patient elects to proceed with this endoscopic procedure. medical equipment was checked for proper function. Hand hygiene and appropriate measures for infection prevention was taken. After the risks, benefits and alternatives of the procedure were thoroughly explained, Informed consent was verified, confirmed and timeout was successfully executed by the treatment team. The patient was anesthetized with topical anesthesia and the Pentax [id number] endoscope was introduced through the mouth and advanced to the second portion of the duodenum. Retroflexion was performed and was normal The gastroscope was then slowly withdrawn and removed. ESOPHAGUS: The mucosa of the esophagus appeared normal. STOMACH: The mucosa of the stomach appeared normal. DUODENUM: The duodenal mucosa appeared normal. ADVERSE EVENTS: There were no complications. IMPRESSIONS: 1. The esophagus appeared normal 2. The mucosa of the stomach appeared normal 3. Normal duodenal mucosa 4. Retroflexion was performed and was normal RECOMMENDATIONS: Colonoscopy PATIENT CONDITION: stable DISPOSITION: Inpatient REPEAT EXAM: Donald Jerez MD eSigned: Donald Jerez MD 03/01/2018 12:59 PM cc: Kalin Gutierres MD PATIENT NAME: Andrew Tang MR#: [id number]
--- NOTE | 2018-03-01 13:11 | GIPROC ---
[facility] [address] [facility]. [facility], [id number] COLONOSCOPY PROCEDURE REPORT EXAM DATE: 03/01/2018 PATIENT NAME: Andrew Tang MR #: [id number] BIRTHDATE: 1940 ENDOSCOPIST: Donald Jerez MD ORDER #: [id number] SURVEY DIRECTOR: Marilee Rosales STATUS: inpatient INDICATIONS: The patient is a 77 yr old male here for a colonoscopy due to hematochezia PROCEDURE PERFORMED: Colonoscopy with biopsy MEDICATIONS: None and Per Anesthesia. PREP QUALITY: fair PREP TYPE:GoLytely ESTIMATED BLOOD LOSS: None CONSENT: The patient understands the risks and benefits of the procedure and understands that these risks include, but are not limited to: sedation, allergic reaction, infection, perforation and/or bleeding. Alternative means of evaluation and treatment include, among others: physical exam, x-rays, and/or surgical intervention. The patient elects to proceed with this endoscopic procedure. medical equipment was checked for proper function. Hand hygiene and appropriate measures for infection prevention was taken. After the risks, benefits and alternatives of the procedure were thoroughly explained, Informed consent was verified, confirmed and timeout was successfully executed by the treatment team. A digital exam was performed and revealed no abnormalities of the rectum The Pentax [id number] endoscope was introduced through the anus and advanced to the terminal ileum which was intubated for a short distance. The instrument was then slowly withdrawn as the colon was fully examined. COLON FINDINGS: A smooth sessile polyp measuring 2 mm in size was found at the cecum. A polypectomy was performed with cold forceps. The resection was complete and the polyp tissue was completely retrieved. A smooth sessile polyp measuring 2 mm in size was found in the distal sigmoid colon. A polypectomy was performed with cold forceps. The resection was complete and the polyp tissue was completely retrieved. Diverticulum was found in the sigmoid colon and descending colon. The opening was small. Retroflexed views revealed small internal hemorrhoids The scope was then completely withdrawn from the patient and the procedure terminated. PROCEDURE WITHDRAWAL TIME:19minutes ADVERSE EVENTS: There were no complications. IMPRESSIONS: 1. A sessile polyp was found at the cecum; polypectomy was performed with cold forceps 2. A sessile polyp was found in the distal sigmoid colon; polypectomy was performed with cold forceps 3. Diverticulum in the sigmoid colon and descending colon 4. Retroflexed views revealed small internal hemorrhoids 5. Was performed 6. Revealed no abnormalities of the rectum RECOMMENDATIONS: Await biopsy results. Biopsy results will not be ready for 7-10 days. If you don't hear from us in two weeks, call our office for results. RECALL: Donald Jerez MD eSigned: Donald Jerez MD 03/01/2018 1:11 PM cc: Kalin Gutierres MD PATIENT NAME: Andrew Tang MR#: [id number]
[2018-03-01] MEDS ORDERED: DO NOT ADM ANY ANTICOAGULANT DRUGS PRN (13:15)
[2018-03-01] MEDS ORDERED: FLUMAZENIL 0.5 MG/5 ML VIAL IV PUSH PRN ×2 (13:15)
[2018-03-01] MEDS ORDERED: NALOXONE HCL 0.4 MG/ML AMP IV PUSH PRN (13:15)
[2018-03-01 16:00] VITALS: BP 115/58; PULSE 85; RESP 16; TEMP 97.6; O2SAT 97
--- NOTE | 2018-03-01 16:40 | HHI.PR ---
Subjective Remarks Pt seen before EGD/colonoscopy. Nursing denies any deteriorations since last night. Pt himself has no new complaints, no BMs since prep initiated. Objective Vital Signs Date Time Temp Pulse Resp B/P (MAP) Pulse Ox O2 Delivery O2 Flow Rate FiO2 03/01/18 13:27 97.6 71 15 108/68 (81) 100 Nasal Cannula 2 03/01/18 13:15 79 14 104/61 (75) 99 Nasal Cannula 2 03/01/18 13:00 82 20 114/58 (76) 98 Nasal Cannula 2 03/01/18 12:58 97.6 80 20 104/59 (74) 98 Nasal Cannula 2 03/01/18 12:00 83 20 112/76 (88) 95 03/01/18 12:00 95 Room Air 03/01/18 11:45 83 25 120/61 (80) 95 03/01/18 11:45 95 Room Air 03/01/18 11:42 94 03/01/18 11:42 98 Room Air 03/01/18 11:42 98.6 94 21 120/74 (89) 96 03/01/18 08:00 97.6 87 17 116/68 (84) 96 03/01/18 00:00 97.9 84 21 110/60 (77) 95 02/28/18 20:00 97.7 114 21 124/76 (92) 99 I/O 02/28/18 02/28/18 02/28/18 03/01/18 03/01/18 03/01/18 07:00 15:00 23:00 07:00 15:00 23:00 Intake Total 1100 ml 1000 ml 100 ml 250 ml Output Total 1000 ml Balance 100 ml 1000 ml 100 ml 250 ml Intake Oral 0 ml IV Total 1100 ml 1000 ml 100 ml 250 ml Output Urine Total 1000 ml # Voids 12 3 # Bowel Movements 4 6 6 Result Diagram: 02/28/18 0617 02/27/18 0910 Objective Remarks Abdomen soft, nontender, nondistended, bowel sounds positive Sitting up at the side of the bed, awake and alert, no acute distress getting ready for transport to EGD suite A/P Assessment and Plan rectal bleeding Posttransfusion H&H is stable, Continue Protonix EGD and colonoscopy now -a-fib with RVR; home Cardizem, rate improving, will hold off on Xarelto given bleeding risk -CAD- s/p CABG/ hypertension; home Lipitor and Cardizem DVT prophylaxis with SCD's- no chemical prophylaxis due to GI bleed. Mahendra Odom MD March 01, 2018 16:40
[2018-03-01 20:00] VITALS: BP 110/57; PULSE 84; RESP 19; TEMP 97.9; O2SAT 95
[2018-03-01] MEDS: ATORVASTATIN 80 MG TAB PO SCH (21:00)
[2018-03-02] VITALS: BP 115/62; PULSE 82; RESP 19; TEMP 97.5; O2SAT 92
[2018-03-02 04:00] VITALS: BP 109/61; PULSE 82; RESP 19; TEMP 98.1; O2SAT 95
[2018-03-02] MEDS: SODIUM CHLOR 0.9% 1000 ML INJ 1,000 ML IV SCH (05:59)
[2018-03-02] MEDS: PANTOPRAZOLE INJ 80 MG in SODIUM CHLORIDE 0.9% INJ 100 ML IV SCH (05:59)
[2018-03-02] MEDS: DILTIAZEM-CD 180 MG CAP ER PO SCH (07:10)
[2018-03-02 07:20] LABS: AUTOMATED NEUTROPHIL # 3.5 TH/MM3 (1.8-7.7); BASOPHIL % 0.3 % (0.0-2.0); EOSINOPHIL # 0.2 TH/MM3 (0-0.4); EOSINOPHIL % 3.3 % (0.0-4.0); HEMATOCRIT 23.5 % (39.0-51.0); HEMOGLOBIN 7.8 GM/DL (13.0-17.0); LYMPH % 22.9 % (9.0-44.0); LYMPHOCYTE # 1.3 TH/MM3 (1.0-4.8); MEAN CORPUSCULAR HEMOGLOBIN 29.1 PG (27.0-34.0); MEAN CORPUSCULAR HGB CONC 33.1 % (32.0-36.0); MEAN PLATELET VOLUME 7.9 FL (7.0-11.0); MONO % 12.7 % (0.0-8.0); MONOCYTE # 0.7 TH/MM3 (0-0.9); NEUT % 60.8 % (16.0-70.0); PLATELET COUNT 163 TH/MM3 (150-450); RED BLOOD COUNT 2.67 MIL/MM3 (4.50-5.90); RED CELL DISTRIBUTION WIDTH 15.3 % (11.6-17.2); WHITE BLOOD COUNT 5.8 TH/MM3 (4.0-11.0)
[2018-03-02 08:00] VITALS: BP 137/74; PULSE 96; RESP 20; TEMP 97.6; O2SAT 100
--- NOTE | 2018-03-02 08:14 | HHI.GIFU ---
GI Follow-up Note Consult Follow-up Subjective: Patient laying in bed comfortably. No further bleeding noted. Discussed findings and upper endoscopy and colonoscopy with patient. Tolerating low residue diet well Objective: PHYSICAL EXAMINATION: Vitals signs stable No fever HEENT: no jaundice. Throat is clear. NECK: no lymphadenopathy. CHEST: Chest is clear to auscultation and percussion.Regular rate and rhythm with no murmur gallop or rubs. ABDOMEN: Soft, nondistended, nontender; no hepatosplenomegaly; bowel sounds are present in all four quadrants. EXTREMITIES: No clubbing, cyanosis, or edema. IT SECURITY ADMINISTRATOR: alert and oriented times three. Available Data (labs, X- Rays, Procedures) : Hemoglobin 7.8--stable Upper endoscopy was normal Colonoscopy revealed colon polyps and left-sided diverticula ASSESSMENT/PLAN: 1. Hematochezia - it is painless. I suspect it is related diverticula. Small bowel lesion such as AVMs are also possible. 2. Anemia, more like acute blood loss anemia.--Hemoglobin is stable 3. History of adenomatous colon polyps in the past. 4. Atrial fibrillation. Anticoagulation is on hold. 5. Cecal and sigmoid polyps removed on yesterday's colonoscopy 6. Descending and sigmoid diverticula noted- No evidence of any bleeding seen on the colonoscopy RECOMMENDATIONS: 1. Since patient tolerating a low residue diet and hemoglobin stabilized he can be discharged from the GI standpoint 2. No exact time to restart his Xarelto but generally it would be prudent to restart it in about 5-7 days. 3. Patient understands while he is off Xarelto he has a risk of thromboembolic phenomena 4. Patient also understands if this is a diverticular bleed he may rebleed again. 5. Follow-up with Dr. Gutierres upon discharge It was a pleasure seeing Andrew Tang. Thank you for this consult. Entered by: Donald Mclean MD March 02, 2018 08:14
--- NOTE | 2018-03-02 10:06 | HHI.DCPOC ---
Discharge Care Plan Diagnosis: (1) GI bleed (2) Acute blood loss anemia (3) Symptomatic anemia Goals to Promote Your Health * To prevent worsening of your condition and complications * To maintain your health at the optimal level Directions to Meet Your Goals Take your medications as prescribed Follow your dietary instruction Follow activity as directed Keep your appointments as scheduled Take your immunizations and boosters as scheduled If your symptoms worsen call your PCP, if no PCP go to Urgent Care Center or Emergency Room Smoking is Dangerous to Your Health. Avoid second hand smoke Call the 24-hour hour crisis hotline for domestic abuse at Mahendra Odom MD March 02, 2018 10:06
--- NOTE | 2018-03-02 10:09 | HHI.DS ---
Discharge Summary Admission Date February 27, 2018 at 10:32 Discharge Date: March 02, 2018 Admitting Diagnosis GI bleed on xarelto (1) Acute blood loss anemia ICD Code: D62 - Acute posthemorrhagic anemia Diagnosis: Principal (2) GI bleed ICD Code: K92.2 - Gastrointestinal hemorrhage, unspecified Diagnosis: Principal Status: Acute Procedures EGD and colonoscopy Brief History - From Admission patient is a 77 y/o male with history of CAD, hypertension, recently diagnosed with a-fib, on Xarelto presented to ER with rectal bleed. he was seen in ER and was diagnosed with a-fib about a month ago and was placed on cardizem and xarelto. he says that since then he's been having fatigue with some exertional dyspnea. he says that initially he thought it was because of the new medications that he was started on. he says that he had a large BM yesterday , most of which was blood. again he had another BM this morning and he noticed some blood when he wiped himself. then he decided to come to ER. he denies any abdominal pain, nausea, vomiting, chest pain or dizziness. he had his last colonoscopy in 2014 which was reportedly negative. CBC/BMP: 03/02/18 0638 02/27/18 0910 Significant Findings Laboratory Tests Test 02/27/18 15:43 02/27/18 21:33 02/28/18 06:17 03/02/18 06:38 Hemoglobin 8.9 GM/DL (13.0-17.0) 8.7 GM/DL (13.0-17.0) 8.0 GM/DL (13.0-17.0) 7.8 GM/DL (13.0-17.0) Hematocrit 27.0 % (39.0-51.0) 26.1 % (39.0-51.0) 24.0 % (39.0-51.0) 23.5 % (39.0-51.0) Red Blood Count 2.67 MIL/MM3 (4.50-5.90) Monocytes (%) (Auto) 12.7 % (0.0-8.0) PE at Discharge Last Impressions Chest X-Ray 02/27/18 0000 Signed Impressions: CONCLUSION: No acute intrathoracic disease. Stable examination. Hospital Course Patient was admitted, started on Protonix drip. GI was consulted, performed EGD with colonoscopy with findings only showing diverticulosis and no active source of bleeding. Patient's hematochezia had stopped and had normal bowel movements. His hemoglobin remained stable and was tolerating p.o. intake well without any further deterioration. Patient has met maximal benefit from hospitalization and is clinically stable for discharge. Patient was counseled per GI recommendations to restart his Xarelto in about 5-7 days. Pt Condition on Discharge: Stable Discharge Disposition: Discharge Home Discharge Time: <= 30 minutes Discharge Instructions DIET: Follow Instructions for: Heart Healthy Diet, Low Residue Diet Activities you can perform: Weight Bearing as Chao Follow up Referrals: Gastroenterology - 2 Weeks with Kalin Gutierres MD PCP Follow-up - 1 Week Continued Medications: Atorvastatin (Atorvastatin) 80 Mg Tab 80 MG PO HS for Cholesterol Management, #30 TAB 0 Refills Cholecalciferol (Vitamin D) 2,000 Unit Cap 2500 DAILY, CAP Diltiazem CD 24 HR (Cardizem CD 24 HR) 180 Mg Caper 180 MG PO DAILY, #30 CAP 0 Refills Multiple Vitamins W/ Minerals (Centrum) 1 Chew 1 TAB CHEW DAILY for Nutritional Supplement, TAB 0 Refills Mahendra Odom MD March 02, 2018 10:09
== END 2018-03-02 12:41 | disposition home or self-care (01) | DRG 378 ==
LOC: NEPC 08:43 → NEDA 10:32 → N07B 14:23
PROVIDERS: ADMIT Hospitalist; ATTEND Hospitalist
PROC: 30233N1 Transfusion of Nonautologous Red Blood Cells into Peripheral Vein, Percutaneous Approach (ICD-10-PCS; principal; 2018-02-27)
PROC: 0DBN8ZX Excision of Sigmoid Colon, Via Natural or Artificial Opening Endoscopic, Diagnostic (ICD-10-PCS; 2018-03-01)
PROC: 0DJ08ZZ Inspection of Upper Intestinal Tract, Via Natural or Artificial Opening Endoscopic (ICD-10-PCS; 2018-03-01)
PROC: 0DBH8ZX Excision of Cecum, Via Natural or Artificial Opening Endoscopic, Diagnostic (ICD-10-PCS; 2018-03-01 12:09)
DX: K92.1 Melena (principal); D62 Acute posthemorrhagic anemia; I48.91 Unspecified atrial fibrillation; I10 Essential (primary) hypertension; I25.10 Atherosclerotic heart disease of native coronary artery without angina pectoris; K63.5 Polyp of colon; K57.30 Diverticulosis of large intestine without perforation or abscess without bleeding; K64.8 Other hemorrhoids; Z79.899 Other long term (current) drug therapy; Z95.1 Presence of aortocoronary bypass graft; Z79.01 Long term (current) use of anticoagulants
CPT/HCPCS: 36430; 71045; 80048; 83880; 84484; 85014; 85018; 85025; 85610; 85730; 86850; 86900; 86901; 86920; 88305; 93005; 96365; 96375; C9113; C9132; J0330; J2370; J7030; J7050; P9016